=== PATIENT | male | born 1960 | race Caucasian/White ===

== ENCOUNTER → 2018-06-21 16:10 | Outpatient (CLI) | payer MEDICARE, SELFPAY ==
--- NOTE | 2018-06-21 16:17 | XR_ITS ---
EXAM: XR thoracic spine 3V HISTORY: ITS.REASON: THORAICI PAIN Comparison: 38 (04/06/2012 FINDINGS: There is mild diffuse levoscoliotic curvature between T1 and T8 measuring 10 degrees. All thoracic vertebrae appear intact. There are multiple large calcified right paratracheal and right suprahilar nodes. There is no paraspinal mass. IMPRESSION: Negative for acute osseous pathology
== END ==
PROVIDERS: PCP Family Medicine; Visit Provider Family Medicine
DX: M54.6 Pain in thoracic spine (principal)
CPT/HCPCS: 72072

== ENCOUNTER → 2018-09-01 15:10 | Outpatient (CLI) | payer MEDICARE, SELFPAY ==
--- NOTE | 2018-09-01 15:15 | CT_ITS ---
CT lung screening EXAM: CT LUNG LOW DOSE WO CONTRAST HISTORY: 45 pack year smoking history, asymptomatic for lung cancer ITS.REASON: CURRENT TOBACCO USE ORDERING PHYSICIAN: Bhumi Eng MD PATIENT AGE: 57 years COMPARISON: None TECHNIQUE: The exam was performed on a GE Light Speed [address] scanner using 2.90 mGy CTDI. A low dose helical CT CHEST was performed on a multi-detector scanner. All CT scans at the facility use one or more dose reduction, viz: automated exposure control, ma/kV adjustment per patient size (including targeted exams where dose is matched to indication, i.e. head), or iterative reconstruction technique. The LDCT was performed in a facility that meets the criteria for the screening program. Data regarding this exam was submitted to ACR which is an approved registry. The order for this exam indicates that it came as a result of a lung cancer screening counseling shard decision-making visit that included all the elements required of such a visit including smoking cessation. The radiologist interpreting this exam meets the [facility] criteria for the LDCT lung cancer screening program. The exam is reported using the Lung-RADS classification scale and reported to the ACR registry. NOTE: This study was performed for the specific purposes of lung cancer screening and is not an alternative to diagnostic chest CT. RADIATION DOSE: CTDI vol(CT dose Index-volume) = 2.90mG DLP (Dose Length Product) = 119.85 mGcm FINDINGS: Calcified nodes are present in the mediastinum. Coronary artery calcification noted. There is nodularity in the right apex could be due to underlying fibrotic change versus 2 nodules or single nodule. This area measures approximately 13 x 5 mm. There are centrilobular emphysematous changes with changes of COPD with scattered areas of pulmonary fibrosis. Patchy alveolar opacification noted in the right middle lobe suggesting an area of pneumonitis atelectatic or fibrotic changes present within the lingula. There are old left-sided rib fractures. IMPRESSION: 1. Lung RADS Category: 4A regarding the nodular opacity in the right apex. This millimeters due to an area of pulmonary fibrosis however cannot exclude a developing nodule. Suggest [address] follow-up without and with contrast 2. Other findings: Centrilobular emphysema, COPD, possible pneumonitis in the right middle lobe RECOMMENDATIONS: [address] of the chest without and with contrast
== END ==
PROVIDERS: PCP Family Medicine; Visit Provider Family Medicine
DX: Z12.2 Encounter for screening for malignant neoplasm of respiratory organs (principal); Z87.891 Personal history of nicotine dependence

== ENCOUNTER 2018-09-15 14:00 | Outpatient (RCR) | payer MEDICARE, SELFPAY | END 2018-09-15 14:05 | disposition home or self-care (01) | LOC: PT 14:00 | PROVIDERS: Visit Provider Family Medicine | DX: M54.5 Low back pain (principal); I10 Essential (primary) hypertension | CPT/HCPCS: 97010; 97014; 97033; 97110; 97163; G0283 ==

== ENCOUNTER → 2019-05-05 14:03 | Outpatient (CLI) | payer MEDICARE, SELFPAY ==
--- NOTE | 2019-05-05 14:31 | CT_ITS ---
PROCEDURE: CT CHEST WO/W CON CLINCAL INDICATION: RIGHT APEX LESION Tobacco use, smoker, right apical nodule, follow-up abnormal LDCT COMPARISON: CXR CHEST(2 VIEWS-NOT PORTABLE) from 04/06/2012 [id number] XR thoracic spine 3V from 06/21/[address] lung screening from 09/01/2018 TECHNIQUE: IV Contrast: 75ml Optiray 350 Axial images obtained with sagittal and coronal reformats. All CT scans at the facility use one or more dose reduction, viz: automated exposure control, ma/kV adjustment per patient size (including targeted exams where dose is matched to indication, i.e. head), or iterative reconstruction technique. FINDINGS: HEART AND MEDIASTINAL STRUCTURES: There is dense mediastinal niya calcification. No hilar mass or adenopathy. LUNGS AND PLEURAL SPACES: Irregular opacity is once again noted in the right apex a 12 mm not significantly changed. No abnormal enhancement. There is evidence of old granulomatous disease. There has been interval development of faint alveolar nodular opacification in the right upper lobe posteriorly with a tree in bud pattern may be inflammatory or infectious. There are some fibrotic changes within the lingula. There is mild bronchial thickening the. BONY STRUCTURES: Old left 3rd and 4th rib fractures. UPPER ABDOMEN: Unremarkable. ADDITIONAL FINDINGS: No other significant abnormalities. IMPRESSION: 1. Stable irregular opacity in the right apex. Possibly related to scarring. 2. COPD. 3. There are some new small alveolar opacities in the right upper lobe posteriorly a tree in bud pattern may be due to some mild pneumonia. 4. Suggest continued follow-up in 6 months. This can be performed without contrast. Dictated by: Christoph Woody MD 05/06/2019 10:34 Electronically signed by Christoph Woody MD in [place] 05/06/2019 10:34
[2019-05-05 14:43] LABS: Blood Urea Nitrogen 8 mg/dl (9-20); Estimated Glomerular Filt Rate 115 ml/min (>60); GFR (African American) 140 ML/MIN (>60)
== END ==
PROVIDERS: PCP Family Medicine; Visit Provider Family Medicine
DX: R93.89 Abnormal findings on diagnostic imaging of other specified body structures (principal)
CPT/HCPCS: 36415; 71270; 82565; 84520; Q9967

== ENCOUNTER 2019-11-02 14:46 | Emergency (ER) | payer MEDICARE, SELFPAY ==
--- NOTE | 2019-11-02 14:42 | ECG_ITS ---
APPROVED REPORT Exam: Resting ECG HR:109 bpm ECG Measurements Heart Rate 109 AXES TN 156 P 82 QRSd 92 QRS 78 QT 318 T 73 QTc 428 <Conclusion> Sinus tachycardia Otherwise normal ECG Electronically signed by : Kenney Garnica, 11/04/2019 06:37:09
[2019-11-02 14:51] VITALS: BP 143/91; PULSE 116; RESP 17; TEMP 37.5; O2SAT 99; BMI 20.9
--- NOTE | 2019-11-02 14:55 | XR_ITS ---
PROCEDURE: XR CHEST 2V CLINICAL HISTORY: shortness of breath COMPARISON: CR CXR CHEST(2 VIEWS-NOT PORTABLE) from 04/06/[address] CHEST WO/W CON from 05/05/2019 FINDINGS: The cardiomediastinal silhouette and pulmonary vascularity are within normal limits. COPD changes with hyper inflation and eventration of the hemidiaphragm. No lobar consolidation or collapse. In the left midlung there is a faint nodular opacity which measures 8 mm nonspecific There are multiple old left-sided rib fractures with an old left clavicular fracture. IMPRESSION: PD. 8 mm nodule left midlung. This could possibly be due to a nipple shadow and could be confirmed with nipple markers. Pulmonary nodule is an additional consideration. Follow-up suggested. Multiple old left rib fractures and old left clavicular fracture Dictated by: Christoph Woody MD 11/02/2019 15:37 Christoph Woody MD in [place] 11/02/2019 15:37
[2019-11-02 15:06] LABS: Chloride 98 mmol/L (98-107)
[2019-11-02 15:07] LABS: Basophils % 0.4 % (0.1-2.0); Eosinophils % 0.5 % (0.1-12.0); Hematocrit 47.3 % (42.0-52.0); Hemoglobin 16.5 g/dL (14.1-18.0); Lymphocytes # 1.5 K/mm3 (0.7-4.5); Lymphocytes % 18.6 % (10-50); Mean Corpuscular HGB Conc 34.9 g/dL (31.8-35.4); Mean Corpuscular Hemoglobin 33.8 pg (27.0-31.2); Mean Corpuscular Volume 96.7 fl (80-94); Mean Platelet Volume 6.9 fl (7.4-10.4); Monocytes # 0.4 K/mm3 (0.1-1.0); Monocytes % 5.6 % (1.7-9.3); Neutrophils # 5.9 K/mm3 (1.8-7.8); Neutrophils % 74.9 % (37.0-80.0); Platelet Count 248 K/mm3 (142-424); Potassium 3.2 mmoL/L (3.5-5.1); Red Cell Distribution Width 13.8 % (11.5-17.5); Sodium 136 mmol/L (136-145); White Blood Count 7.9 K/mm3 (4.8-10.8)
[2019-11-02 15:09] LABS: Alanine Aminotransferase 34 U/L (12-78); Alkaline Phosphatase 85 U/L (38-126); Aspartate Amino Transferase 49 U/L (17-59); Bilirubin,Total 0.8 mg/dl (0.2-1.3); Blood Urea Nitrogen 10 mg/dl (9-20); Creatinine Clearance Estimated 113 mL/min (50-200); Estimated Glomerular Filt Rate 115 ml/min (>60); GFR (African American) 140 ML/MIN (>60)
[2019-11-02 15:10] LABS: Albumin Level 4.6 g/dl (3.5-5.0); Albumin/Globulin Ratio 1.4 (1.1-1.8); Anion Gap 14.2 mEq/L (5-15); Calcium 9.9 mg/dl (8.4-10.2); Carbon Dioxide 27 mmol/L (22.0-30.0); Globulin 3.4 g/dL (1.3-3.2); Glucose 128 mg/dl (74-100)
[2019-11-02 15:27] LABS: Free T4 (Free Thyroxine) 1.25 ng/dl (0.78-2.19)
[2019-11-02 15:33] LABS: Troponin I < 0.01 ng/ml (0.00-0.034)
--- NOTE | 2019-11-02 15:38 | HMH.EDGENADL ---
ED Disposition Clinical Impression: Sinus tachycardia Disposition: Home, Self-Care Condition on Discharge: Good Instructions: DI for Tachycardia Additional Instructions: Metoprolol as prescribed. See Dr. Eng in his office at 10:30 AM on 11/08/2019. Prescriptions: Metoprolol Succinate [Toprol XL 25mg tablet] 25 mg PO DAILY #30 tab Transmission Status: Received by [id number] Referrals: Bhumi Eng MD [Primary Care Provider] - - Critical Care Critical Care Time: No Attestation: On 11/02/19, the high probability of a clinically significant, sudden or life threatening deterioration of the following system(s) required my full and direct attention, intervention and personal management. The time I documented below is in addition to time spent performing reported procedures but includes the following listed in this critical care notation. Medical Decision Making - Medical Records Medical records reviewed: Yes: I reviewed the patient's medical records. - Anthony Inquiry Pt receiving controlled substance: No Vital Signs: 11/02/19 14:51 11/02/19 16:02 11/02/19 16:36 Temperature 99.5 F Temperature Source Oral Pulse Rate Pulse Rate [Right Radial] 116 H 99 H 96 H Respiratory Rate 17 Blood Pressure Blood Pressure [Right Arm] 143/91 H 128/83 131/86 Blood Pressure Mean [Right Arm] 108 98 101 Blood Pressure Source [Right Arm] Automatic Cuff Automatic Cuff Blood Pressure Position [Right Arm] Sitting Sitting 02 Sat by Pulse Oximetry 99 98 97 Oxygen Delivery Method Room Air Room Air 11/02/19 17:14 Temperature 98.9 F Temperature Source Oral Pulse Rate 92 H Pulse Rate [Right Radial] Respiratory Rate 17 Blood Pressure 131/82 Blood Pressure [Right Arm] Blood Pressure Mean [Right Arm] Blood Pressure Source [Right Arm] Blood Pressure Position [Right Arm] 02 Sat by Pulse Oximetry Oxygen Delivery Method Room Air - Lab Data Lab results reviewed: Yes: I reviewed the patient's lab results. Lab Results 11/02/19 14:52: WBC 7.9, RBC 4.90, Hgb 16.5, Hct 47.3, MCV 96.7 H, MCH 33.8 H, MCHC 34.9, RDW 13.8, Plt Count 248, MPV 6.9 L, Neut % (Auto) 74.9, Lymph % (Auto) 18.6, [place] % (Auto) 5.6, Eos % (Auto) 0.5, Baso % (Auto) 0.4, Neut # (Auto) 5.9, Lymph # (Auto) 1.5, [place] # (Auto) 0.4, Eos # (Auto) 0.0, Baso # (Auto) 0.0 11/02/19 14:52: Sodium 136, Potassium 3.2 L, Chloride 98, Carbon Dioxide 27, Anion Gap 14.2, BUN 10, Creatinine 0.70, Estimated Creat Clear 113, Estimated GFR 115, Est GFR ( Amer) 140, Glucose 128 H, Calcium 9.9, Total Bilirubin 0.8, AST 49, ALT 34, Alkaline Phosphatase 85, Troponin I < 0.01, Total Protein 8.0, Albumin 4.6, Globulin 3.4 H, Albumin/Globulin Ratio 1.4, TSH 0.66 11/02/19 14:52: Free T4 1.25 11/02/19 14:52: D-Dimer 0.39 Result diagrams: 11/02/19 14:52 11/02/19 14:52 - Radiology Data #1 Image(s): Chest Image Reviewed: Yes I reviewed the patient's radiology image, Yes I have reviewed radiologist's interpretation PROCEDURE: XR CHEST 2V CLINICAL HISTORY: shortness of breath COMPARISON: CR CXR CHEST(2 VIEWS-NOT PORTABLE) from 04/06/[address] CHEST WO/W CON from 05/05/2019 FINDINGS: The cardiomediastinal silhouette and pulmonary vascularity are within normal limits. COPD changes with hyper inflation and eventration of the hemidiaphragm. No lobar consolidation or collapse. In the left midlung there is a faint nodular opacity which measures 8 mm nonspecific There are multiple old left-sided rib fractures with an old left clavicular fracture. IMPRESSION: PD. 8 mm nodule left midlung. This could possibly be due to a nipple shadow and could be confirmed with nipple markers. Pulmonary nodule is an additional consideration. Follow-up suggested. Multiple old left rib fractures and old left clavicular fracture Dictated by: Christoph Woody MD 11/02/2019 15:37 Christoph Woody MD in [place] 11/02/2019 15:3
[2019-11-02 15:41] LABS: Thyroid Stimulating Hormone 0.66 uIU/mL (0.465-4.68)
[2019-11-02 15:57] LABS: D-Dimer 0.39 ug/mL (0.15-8.0)
[2019-11-02 16:02] VITALS: BP 128/83; PULSE 99; O2SAT 98
[2019-11-02 16:36] VITALS: BP 131/86; PULSE 96; O2SAT 97
--- NOTE | 2019-11-02 16:49 | PC.NURSE ---
Dr Velasquez reaves.
[2019-11-02 17:14] VITALS: BP 131/82; PULSE 92; RESP 17; TEMP 37.2; O2SAT 99
== END 2019-11-02 17:21 | disposition home or self-care (01) ==
PROVIDERS: Emergency Provider Emergency Medicine; PCP Family Medicine
DX: R00.0 Tachycardia, unspecified (principal); J44.9 Chronic obstructive pulmonary disease, unspecified; Z87.891 Personal history of nicotine dependence; Z79.899 Other long term (current) drug therapy
CPT/HCPCS: 71046; 80053; 84439; 84443; 84484; 85025; 85378; 93005; 99284

== ENCOUNTER → 2020-04-11 13:33 | Outpatient (CLI) | payer MEDICARE, SELFPAY ==
--- NOTE | 2020-04-11 13:38 | CT_ITS ---
PROCEDURE: CT CHEST WO CON Follow up ct, Abnormal ct, 05/05/19 no symptoms at this time CLINICAL INDICATION: Tobacco use, smoker, right apical nodule ABN CHEST CT Follow-up abnormal chest CT COMPARISON: CT LUNGSCREEN CT lung screening from 09/01/[address] CHEST WO/W CON from 05/05/2019 CR XR CHEST 2V from 11/02/2019 TECHNIQUE: Axial images obtained with sagittal and coronal reformats. All CT scans at the facility use one or more dose reduction, viz: automated exposure control, ma/kV adjustment per patient size (including targeted exams where dose is matched to indication, i.e. head), or iterative reconstruction technique. FINDINGS: There is evidence of old granulomatous disease with calcified mediastinal lymph nodes. Coronary artery calcification is present. No mediastinal or hilar mass or adenopathy. Right apical nodule is unchanged and presumed to represent scarring stable since 09/01/2018. Changes of COPD with centrilobular emphysema and other scattered areas of scarring noted. There is a new area of atelectasis in the right upper lobe medially and anteriorly. Atelectatic or fibrotic changes are present in the right middle lobe not significantly changed. No effusions or infiltrates. Previously noted tree in bud pattern in the right upper lobe is no longer apparent. No effusions. No infiltrates. There are new wedge compression changes of the T2 vertebral body with loss of height anteriorly of approximately 30 percent. No retropulsion. Along the superior aspect of T2 there is a lucent lesion. This was not readily apparent on the previous exam.. There is gynecomastia. Upper abdominal images are unremarkable. IMPRESSION: 1. No change right apical nodule 2. COPD with centrilobular emphysema with scattered areas of atelectasis and/or fibrotic change. New atelectatic changes are present in the right upper lobe medially. Bronchiolitis obliterans with organizing pneumonia is a consideration. 3. Wedge compression fracture of T2 which is developed in the interval. There is an ill-defined lucency along the superior aspect of the vertebral body which could be the result of a Schmorl's node or a lytic lesion. This was not present on the previous study. Consider MRI of the thoracic spine without and with contrast for further evaluation. Dictated by: Christoph Woody MD 04/13/2020 10:01 Christoph Woody MD in [place] 04/13/2020 10:01
== END ==
PROVIDERS: PCP Family Medicine; Visit Provider Family Medicine
DX: R93.89 Abnormal findings on diagnostic imaging of other specified body structures (principal); R91.1 Solitary pulmonary nodule
CPT/HCPCS: 71250

== ENCOUNTER → 2020-05-01 09:20 | Outpatient (CLI) | payer MEDICARE, SELFPAY ==
--- NOTE | 2020-05-01 09:34 | MR_ITS ---
PROCEDURE: MR THORACIC SPINE WO/W CON CLINICAL INDICATION: ABNORMAL CT OF THORACIC SPINE Abnormal CT of chest. Back pain x10yrs. No injury. COMPARISON: CT CT CHEST WO/W CON from 05/05/[address] CHEST WO CON from 04/11/2020 TECHNIQUE: Routine multiplanar multi echo sequences are performed without and with gadolinium enhancement. FINDINGS: There is normal alignment. Mild wedge compression changes involve the the T2 vertebral body with loss of height anteriorly of approximately 30 percent without retropulsion. The vertebral bodies hypointense on T1 and hyperintense on T2 demonstrating some mild generalized enhancement. There is also a small area of decreased T1 and increased T2 signal involving the superior posterior aspect of the T3 vertebral body suggesting an area bone marrow edema. Mild bulging of the disc is present at T1-T2 and T2-T3. There is thickening of the soft tissues in the paraspinal region with some mild enhancement of the soft tissues at T1 and T2. There is increased T2 signal of the disc at T1-T2. There is also some mild bone marrow edema involving the facet on the right at T1 as well as the T1 spinous process. 3 mm anterolisthesis noted at T3-T4 there is minimal wedging of T5 which appears chronic. Mild degenerative disc disease T6-T7 with type 1 endplate changes anteriorly. Bone marrow edema also present in the transverse process on the right at T1. There is some minimal enhancement of the right transverse process and of the pedicle Minimal left paracentral disc protrusion noted at T6-T7 without impingement Minimal right and left paracentral disc protrusion at T8-T9 without impingement. Minimal bulging disc with minimal left paracentral and foraminal disc protrusion at T9-T10. Facet hypertrophic changes present at T10-T11 with bilateral lateral recess and foraminal narrowing. Minimal bulging disc T11-T12 with facet and ligamentum hypertrophy with bilateral foraminal narrowing. There is degenerative disc disease at C7-T1 with 3 mm anterolisthesis of C7 IMPRESSION: 1. Mild acute compression fracture is present at T2. In addition, there is bone marrow edema involving the T1 vertebra at involving the right pedicle, facets, and transverse process. There is mild soft tissue swelling in the paraspinal region at T2 with some enhancement of the soft tissues. These findings are suspicious for underlying infection/inflammation associated with the mild wedge compression change. 2. Thoracic spondylosis with other nonacute findings as described above. Please see above for detailed description Dictated by: Christoph Woody MD 05/03/2020 09:19 Christoph Woody MD in [place] 05/03/2020 09:19
[2020-05-01 09:40] LABS: Blood Urea Nitrogen 10 mg/dl (9-20); Estimated Glomerular Filt Rate 86 ml/min (>60); GFR (African American) 104 ML/MIN (>60)
== END ==
PROVIDERS: PCP Family Medicine; Visit Provider Family Medicine
DX: R93.7 Abnormal findings on diagnostic imaging of other parts of musculoskeletal system (principal)
CPT/HCPCS: 36415; 72157; 82565; 84520; A9576

== ENCOUNTER → 2020-06-05 10:12 | Outpatient (CLI) | payer MEDICARE, SELFPAY ==
[2020-06-05 11:33] LABS: Coronavirus 19 IgG Antibody Positive (Negative)
[2020-06-05 11:34] LABS: Coronavirus 19 IgM Antibody Negative (Negative)
== END ==
PROVIDERS: Visit Provider Surgery
DX: Z01.812 Encounter for preprocedural laboratory examination (principal); Z20.822 Contact with and (suspected) exposure to COVID-19; Z12.11 Encounter for screening for malignant neoplasm of colon
CPT/HCPCS: 36415; 86328

== ENCOUNTER 2020-06-06 06:39 | Day surgery (SDC) | payer MEDICARE, SELFPAY ==
[2020-06-01 16:03] VITALS: BMI 22.4
[2020-06-06 07:14] VITALS: BP 127/59; PULSE 82; RESP 18; TEMP 36.1; O2SAT 95
--- NOTE | 2020-06-06 07:21 | P.HP_ITS ---
HPI HPI: Patient is a 59-year-old male referred by Dr. Eng for colonoscopy. He resides in [facility]. He has never had prior colonoscopy. He states that recently he had some visualized blood in the stool and with wiping. He had no pain. Denies any family history of colon cancer. [facility] History I have reviewed the patient's past medical history: Yes Medical History: Reports:: Hypertension Denies:: Cancer, Diabetes Mellitus Type 1, Diabetes Mellitus Type 2, Internal Pacemaker, MRSA, Seizures *Have you ever received a pneumonia vaccine?: Yes *Have you received a flu vaccine this season?: Yes Laterality Cases: Left: Arthroscopy Hip, Other Other Surgeries: Yes: Appendectomy, Cholecystectomy, Other. No: Pacemaker Amputation: No Fractures: Yes (hip) - *Social History Smoking Status: Former smoker Alcohol Intake: current Alcohol Intake Frequency:: 0-2 drinks per day Substance Use Type: denies use *Occupational Status:: disabled Housing: house *Travel in the last 8 weeks: None Family Hx:: Non-contributory Review of Systems - Review of Systems Review of systems:: pertinent systems reviewed and negative unless documented below Meds Home Medications Medication Instructions Recorded Confirmed Type albuterol sulfate 90 mcg/actuation 1 inh INHALATION DAILY 04/30/20 04/30/20 History aerosol inhaler baclofen 10 mg tablet 10 mg PO DAILY tab 04/30/20 04/30/20 History duloxetine 30 mg capsule,delayed 30 mg PO DAILY cap 04/30/20 04/30/20 History release gabapentin 600 mg tablet 600 mg PO DAILY tab 04/30/20 04/30/20 History potassium chloride 10 mEq 10 meq PO DAILY cap 04/30/20 04/30/20 History capsule,extended release tramadol 50 mg tablet 50 mg PO DAILY tab 04/30/20 04/30/20 History valsartan 160 1 tab PO DAILY tab 04/30/20 04/30/20 History mg-hydrochlorothiazide 12.5 mg tablet Metoprolol Succinate [Toprol XL 25 mg PO DAILY 06/06/20 History 25mg tablet] Allergies Allergy/AdvReac Type Severity Reaction Status Date / Time NO KNOWN ALLERGIES Allergy Uncoded 04/30/20 10:28 Exam Vital signs and Labs for Last 24 Hours: Temp Pulse Resp BP Pulse Ox 97.0 F L 82 18 127/59 L 95 06/06/20 07:14 06/06/20 07:14 06/06/20 07:14 06/06/20 07:14 06/06/20 07:14 - *Routine HEENT Exam Head: Present: normocephalic Eye: Present: EOMI, PERRL ENT: Present: mucous membranes moist - *Routine Neck Exam Present: supple. Absent: lymphadenopathy - *Routine Respiratory Exam Present: CTA bilaterally - *Routine Cardiovascular Exam Present: RRR - *Routine Abdominal Exam Present: soft, normoactive bowel sounds. Absent: tenderness - *Routine Extremities Exam Absent: cyanosis, clubbing, edema - *Routine Skin Exam Present: warm. Absent: rash - *Routine Neurological Exam Present: alert, oriented X3 Assessment and Plan - Assessment and plan all Dx Assessment and Plan for all problems:: Colonoscopy
[2020-06-06 07:33] VITALS: O2SAT 4
--- NOTE | 2020-06-06 07:43 | HMH.ANESCL ---
[facility] Anesthesia Checklist - Patient Identification Patient Identification: Arm Band - Structural Data Admitted From: Home Planned Operative Procedure/s: colonoscopy Consent for Planned Operative Procedure(s) Verified: Yes Verified Documents: Surgical Consent, History and Physical - NPO Status Verified Time NPO: 00:00 - Additional verifications Anesthesia Reactions: No - Airway Assessment C-Spine Mobility Assessed: Yes (mp2) TMJ Mobility Assessed: Yes Dentition: Poor Dentition - Neurological Assessment Level of Consciousness: Awake, Alert - Anesthesia Plan Anesthesia Risk discussed: Yes Anesthesia Plan: Verified ASA Class: III Anesthesia Type: MAC [facility] History I have reviewed the patient's past medical history: Yes Medical History: Reports:: Chronic Obstructive Pulmonary Disease (COPD), Hypertension Denies:: Cancer, Diabetes Mellitus Type 1, Diabetes Mellitus Type 2, Internal Pacemaker, MRSA, Seizures *Have you ever received a pneumonia vaccine?: Yes *Have you received a flu vaccine this season?: Yes Anesthesia experience/problems:: nac Laterality Cases: Left: Arthroscopy Hip, Other Other Surgeries: Yes: Appendectomy, Cholecystectomy, Other. No: Pacemaker Amputation: No Fractures: Yes (hip) - *Social History Smoking Status: Former smoker Alcohol Intake: current Alcohol Intake Frequency:: 0-2 drinks per day Substance Use Type: denies use *Occupational Status:: disabled Housing: house *Travel in the last 8 weeks: None Family Hx:: Non-contributory
--- NOTE | 2020-06-06 08:16 | HMH.SCOPE ---
- Procedure: Date: 06/06/20 Patient Date of :: 1960 Procedure Performed:: Total colonoscopy with polypectomy by cold snare Indications:: Patient is a 59-year-old male referred by Dr. Eng for colonoscopy. He resides in [facility]. He has never had prior colonoscopy. He states that recently he had some visualized blood in the stool and with wiping. He had no pain. Denies any family history of colon cancer. Performing Provider:: Camilo Petersen MD Referring Provider:: Jeremias Eng MD Sedation:: Propofol Procedure:: Patient was taken to endoscopy procedure room. He was positioned in lateral decubitus position. Adequate intravenous sedation was achieved with anesthesia titration of propofol. Digital examination was performed which revealed normal sphincter tone with unremarkable prostate. Variable stiffness Olympus colonoscope was inserted via the anus. Was advanced to the cecum. There was some particulate stool throughout the colon and irrigation and suctioning was performed. The ileocecal valve and appendiceal orifice were clearly identified. Colonoscope was withdrawn through the colon with irrigation and suctioning performed due to particulate stool throughout the colon. In the transverse colon there was a diminutive polyp removed with cold cutting snare. Descending colon there was a small polyp removed with cold cutting snare. He had a few rare beginnings of sigmoid diverticuli. Retroflexion within the rectum revealed internal hemorrhoids which were nonbleeding. Colonoscope was withdrawn. Findings:: Internal hemorrhoids Small polyp x2 Particulate stool throughout the colon Recommendations:: Given the fact that this was patient's initial screening colonoscopy and due to the particulate stool and polyps likely recommend repeat colonoscopy 3 years pending the pathology. Complications:: None immediately apparent Estimated blood obtained (mL): 1
[2020-06-06 08:17] VITALS: BP 118/62; PULSE 68; RESP 18; TEMP 36.1; O2SAT 100
[2020-06-06 08:30] VITALS: BP 115/61; PULSE 66; RESP 18; O2SAT 99
[2020-06-06 08:45] VITALS: BP 109/70; PULSE 71; RESP 18; O2SAT 98
== END 2020-06-06 08:51 | disposition home or self-care (01) ==
LOC: OUTP 06:40
PROVIDERS: PCP Family Medicine; Visit Provider Surgery
PROC: 0DJD8ZZ Inspection of Lower Intestinal Tract, Via Natural or Artificial Opening Endoscopic (ICD-10-PCS; CPT 45385; principal; 2020-06-06 07:30)
DX: Z12.11 Encounter for screening for malignant neoplasm of colon (principal); K63.5 Polyp of colon; K64.9 Unspecified hemorrhoids; K57.30 Diverticulosis of large intestine without perforation or abscess without bleeding; J44.9 Chronic obstructive pulmonary disease, unspecified; I10 Essential (primary) hypertension; Z90.49 Acquired absence of other specified parts of digestive tract; Z87.39 Personal history of other diseases of the musculoskeletal system and connective tissue; Z87.891 Personal history of nicotine dependence
CPT/HCPCS: 45385; 88305

== ENCOUNTER → 2020-08-06 15:21 | Outpatient (CLI) | payer MEDICARE, SELFPAY ==
--- NOTE | 2020-08-06 15:26 | XR_ITS ---
PROCEDURE: XR MULTIPLE SPINE 6+V CLINICAL INDICATION: THORACIC PAIN, Cervical pain COMPARISON: CT CT CHEST WO CON from 04/11/2020 FINDINGS: Cervical spine: Eight views. There is reversal cervical lordosis with degenerative disc disease at C3-C4 C4-C5 C5-C6 C6-C7 and C7-T1. There is 2 mm anterolisthesis of C2 on C3 and C7 on T1. There is minimal foraminal narrowing on the right at C5-C6. No fracture or dislocation. No lytic or blastic change. Thoracic spine: Mild lower thoracic scoliosis convex right. Mild multilevel thoracic spondylosis. There is mild wedging of T2 and T5. Not significantly changed from a previous chest CT of 04/11/2020. No acute fracture or dislocation is apparent. Other findings:None. IMPRESSION: 1. Degenerative changes of the cervical spine and thoracic spine as described above 2. Mild wedging of T2 and T5 not significantly changed Dictated by: Christoph Woody MD 08/06/2020 16:34 Christoph Woody MD in [place] 08/06/2020 16:34
== END ==
PROVIDERS: PCP Family Medicine; Visit Provider Family Medicine
DX: M54.2 Cervicalgia (principal); M54.6 Pain in thoracic spine
CPT/HCPCS: 72084

== ENCOUNTER → 2020-12-24 14:07 | Outpatient (CLI) | payer MEDICARE, SELFPAY ==
--- NOTE | 2020-12-24 14:14 | MR_ITS ---
PROCEDURE: MR LUMBAR SPINE WO CON CLINICAL INDICATION: LUMBAGO WITH SCIATICA Per technologist notes, patient had a hard time staying still and best images possible were sent. Bilateral low back pain, bilateral leg tingling and pain to knees for years, no injury or trauma. COMPARISON: MR MR THORACIC SPINE WO/W CON from 05/01/2020 TECHNIQUE: Standard multiplanar multiecho sequences are performed without contrast. 3-D MIP and myelographic images are also rendered and reviewed FINDINGS: This study is markedly limited due to motion artifact. No trailer mechanic count images were provided and no prior lumbar radiographs are available. For the purpose of this examination it is assumed that there are 5 [id number] lumbar vertebrae. At the level of L3-4, there is severe canal stenosis with mass effect on the cauda equina secondary to posterior compression by a combination of posteriorly herniated disc fragment within the posterior canal, severe ligamentum flavum hypertrophy, and facet arthropathy/hypertrophy. There is also a mild anterior disc bulge at this level producing impingement on the thecal sac. The next most compressed level is L4-5, also with severe canal stenosis due to a combination of facet hypertrophy and ligamentum flavum hypertrophy with compression posteriorly. These are the worst 2 levels. The remainder of the canal is widely patent. There are no other significant disc bulges. There is significant lumbar spondylosis with severe disc space narrowing at L3-4 and L4-5. IMPRESSION: 1. Severe cauda equina compression at L3-4 due to a combination of a large posteriorly herniated disc fragment in the posterior canal, severe ligamentum flavum hypertrophy, and severe facet arthropathy. Recommend correlating clinically for symptoms of cauda equina syndrome. 2. Severe canal stenosis at L4-5 due to a combination of facet arthropathy and ligamentum flavum hypertrophy. 3. Recommend referral to spine surgeon for evaluation for L3-4 and L4-5 laminectomy. Dictated by: Bianka Bajwa MD 12/25/2020 13:12 Bianka Bajwa MD in [place] 12/25/2020 13:12
== END ==
PROVIDERS: PCP Family Medicine; Visit Provider Family Medicine
DX: M54.41 Lumbago with sciatica, right side (principal)
CPT/HCPCS: 72148; 76376

== ENCOUNTER → 2021-09-13 13:45 | Outpatient (CLI) | payer MEDICARE, SELFPAY ==
--- NOTE | 2021-09-13 13:50 | XR_ITS ---
FINAL REPORT CLINICAL HISTORY: PAIN IN RT HAND and rt neck pain FINDINGS: CERVICAL SPINE Five views were obtained. There is no acute fracture. There is no malalignment. There is moderate disc space narrowing at C4-5, C5-6, and C6-7. There is loss of cervical lordosis. There is mild anterior osteophyte formation. There is mild left neural foraminal narrowing at C5-C6. IMPRESSION: Moderate degenerative disc disease. Reviewed, Interpreted and Dictated by Nir Oliveira MD Transcribed by Roni Saldivar Authenticated and [facility]
== END ==
PROVIDERS: PCP Family Medicine; Visit Provider Family Medicine
DX: M54.2 Cervicalgia (principal); M79.641 Pain in right hand
CPT/HCPCS: 72050

== ENCOUNTER 2023-07-14 06:49 | Day surgery (SDC) | payer MEDICARE, SELFPAY ==
[2023-07-14] VITALS (7 sets, daily range): BP systolic 112–121; BP diastolic 69–81; PULSE 68–79; RESP 16–18; TEMP 36.2–36.6; O2SAT 93–97; BMI 22.4
[2023-07-14] MEDS: TETRACAINE 0.5% OPTH SOL 15ML OP ×3 (07:05→07:07)
[2023-07-14] MEDS: CYCLOPENTOLATE 2% OPHTH SOLN 2ML BOTTLE OP ×3 (07:05→07:07)
[2023-07-14] MEDS: PHENYLEPHRINE 2.5% OPHTH SOLN 2ML OP ×3 (07:06→07:07)
[2023-07-14] MEDS: SODIUM CHLORIDE 0.9% 10ML FLUSH SYRINGE 10 ML IV ×2 (07:06→08:29)
[2023-07-14] MEDS: MIDAZOLAM 2MG/2ML VIAL 2 MG (08:27)
[2023-07-14] MEDS: TIMOLOL 0.5% OPTH SOLN 5ML OP (08:29)
[2023-07-14] MEDS: LIDOCAINE 1% PF 2ML AMPULE 2 ML IJ (08:30)
[2023-07-14] MEDS: TRI-MOXI 15MG/1MG/ML 1ML OPHTH VIAL 1 ML OP (08:30)
--- NOTE | 2023-07-14 12:25 | P.PCN_ITS ---
[facility] Procedure Note Date: 07/14/23 Time: 12:25 Procedure Note:: Preoperative Diagnosis: Cataract combined NS Cortical Complex [Right] Eye Postop diagnosis: same Operation: Microscopic phacoemulsification with intraocular lens implant [Right] Eye Specimen: None Blood Loss: None The patient was examined in the office with a complaint of poor vision in the [right] eye. The patient reports that this interferes with ADLs such as reading, watching TV and/or driving or the vision is like looking through a foggy haze and is very troubling. The patient was examined and found to have a visually significant cataract with best corrected vision of [20/400] by refraction and/or glare testing. Treatment options, risks and benefits were explained and the patient elected to have cataract surgery in an attempt to improve their vision. The patient had the eye anesthetized with topical tetracaine, the eye ways prepped and draped in the usual fashion for cataract surgery. A paracentesis and a temporal keratotomy were made. 0.2cc of 1% lidocaine PF was placed into the anterior chamber. And aqueous/viscoelastic exchange was done and a 360 degree capsulorexis was performed. Through hydrodissection and delineation with BSS on a cannula was done. The lens nucleus was phecoemulsified with CDE of [6.27]. Residual cortical material was removed using automated I&A The capsular bag was deepened with viscoelastica and a PCIOL was placed in the capsular bag with good centration and stability. Residual viscoelastic was removed using automated I&A. The keratotomy incision was hydrated with BSS on a cannula. The wound were checked and found to be water tight. IOP was checked digitally and adjusted as needed so as not to be too high. 1 drop of timolol 0.5%, ofloxacin, prednisolone acetate and ketorolac was instilled and eye shield taped over the eye. The patient was taken to recovery in good condition and will be seen postoperatively.
== END 2023-07-14 08:56 | disposition home or self-care (01) ==
PROVIDERS: PCP Family Medicine; Visit Provider Ophthalmology
PROC: (CPT 66984; principal; 2023-07-14 08:00)
DX: H25.11 Age-related nuclear cataract, right eye (principal); H53.8 Other visual disturbances
CPT/HCPCS: 66984; V2632

== ENCOUNTER 2023-07-28 07:18 | Day surgery (SDC) | payer MEDICARE, SELFPAY ==
[2023-07-28] VITALS (7 sets, daily range): BP systolic 119–142; BP diastolic 73–91; PULSE 80–85; RESP 16–18; TEMP 36.6; O2SAT 96–97
[2023-07-28] MEDS: TETRACAINE 0.5% OPTH SOL 15ML OP ×3 (07:42→07:44)
[2023-07-28] MEDS: CYCLOPENTOLATE 2% OPHTH SOLN 2ML BOTTLE OP ×3 (07:42→07:44)
[2023-07-28] MEDS: PHENYLEPHRINE 2.5% OPHTH SOLN 2ML OP ×3 (07:43→07:44)
[2023-07-28] MEDS: TRI-MOXI 15MG/1MG/ML 1ML OPHTH VIAL 1 ML OP (08:55)
[2023-07-28] MEDS: SODIUM CHLORIDE 0.9% 10ML FLUSH SYRINGE 10 ML IV (08:55)
[2023-07-28] MEDS: MIDAZOLAM 2MG/2ML VIAL 2 MG (08:55)
[2023-07-28] MEDS: LIDOCAINE 1% PF 2ML AMPULE 2 ML IJ (08:56)
[2023-07-28] MEDS: TIMOLOL 0.5% OPTH SOLN 5ML OP (08:56)
--- NOTE | 2023-08-11 13:15 | P.PCN_ITS ---
[facility] Procedure Note Date: 07/28/23 Time: 13:15 Procedure Note:: Preoperative Diagnosis: Cataract combined NS Cortical Complex [Left] Eye Postop diagnosis: same Operation: Microscopic phacoemulsification with intraocular lens implant [Left] Eye Specimen: None Blood Loss: None The patient was examined in the office with a complaint of poor vision in the [left] eye. The patient reports that this interferes with ADLs such as reading, watching TV and/or driving or the vision is like looking through a foggy haze and is very troubling. The patient was examined and found to have a visually significant cataract with best corrected vision of [20/400] by refraction and/or glare testing. Treatment options, risks and benefits were explained and the patient elected to have cataract surgery in an attempt to improve their vision. The patient had the eye anesthetized with topical tetracaine, the eye ways prepped and draped in the usual fashion for cataract surgery. A paracentesis and a temporal keratotomy were made. 0.2cc of 1% lidocaine PF was placed into the anterior chamber. And aqueous/viscoelastic exchange was done and a 360 degree capsulorexis was performed. Through hydrodissection and delineation with BSS on a cannula was done. The lens nucleus was phecoemulsified with CDE of [6.34]. Residual cortical material was removed using automated I&A The capsular bag was deepened with viscoelastica and a PCIOL was placed in the capsular bag with good centration and stability. Residual viscoelastic was removed using automated I&A. The keratotomy incision was hydrated with BSS on a cannula. The wound were checked and found to be water tight. IOP was checked digitally and adjusted as needed so as not to be too high. 1 drop of timolol 0.5%, ofloxacin, prednisolone acetate and ketorolac was instilled and eye shield taped over the eye. The patient was taken to recovery in good condition and will be seen postoperatively.
== END 2023-07-28 09:30 | disposition home or self-care (01) ==
PROVIDERS: PCP Family Medicine; Visit Provider Ophthalmology
PROC: (CPT 66984; principal; 2023-07-28 09:00)
DX: H25.12 Age-related nuclear cataract, left eye (principal); H53.8 Other visual disturbances
CPT/HCPCS: 66984; V2632